=== PATIENT | male | born 1960 | race African-American/Black ===

== ENCOUNTER 2016-12-20 09:53 | Inpatient (IN) | payer MEDICAID ==
[~2016-12-20] VITALS: Ht 193 cm; Wt 149.6 kg
[2016-12-20] MEDS ORDERED: SODIUM CHLORIDE 0.9% 500 ML IV ONE (10:35)
[2016-12-20] MEDS ORDERED: ONDANSETRON HCL 4 MG/2 ML VIAL IV ONE (10:45)
[2016-12-20] MEDS ORDERED: CLINDAMYCIN 900MG IV 50 ML IV ONE (10:45)
[2016-12-20] MEDS ORDERED: MORPHINE SULFATE 4 MG/ML SYRG IV ONE (10:45)
[2016-12-20 11:20] LABS: Basophils # (auto) 0 uL; Basophils % (auto) 0.4 % (0.0-2.0); Eosinophils # (auto) 0.1 uL; Eosinophils % (auto) 1.2 % (0.0-7.0); Hematocrit 34.7 % (41.0-53.0); Hemoglobin 11.6 g/dL (13.5-17.5); Lymphocytes # (auto) 1.7 uL; Lymphocytes % (auto) 18.5 % (10.0-50.0); Mean Corpuscular Hemoglobin 31.9 pg (28.0-32.0); Mean Corpuscular Hgb Conc. 33.5 g/dL (32.0-36.0); Mean Corpuscular Volume 95.1 fL (80.0-100.0); Mean Platelet Volume 8.6 fL (7.4-10.4); Monocytes # (auto) 0.5 uL; Monocytes % (auto) 5.1 % (0.0-12.0); Neutrophils # (auto) 6.9 uL; Neutrophils % (auto) 74.8 % (37.0-80.0); Platelet Count (auto) 318 10^3/uL (140-450); Red Cell Distribution Width 13.7 % (11.6-16.0); White Blood Cell 9.2 10^3/uL (4.4-10.8)
[2016-12-20] MEDS ORDERED: HYDROcodone-ACET 5/325MG TAB PO PRN (11:30)
[2016-12-20] MEDS ORDERED: ACCU-CHEK COMFORT CURVE STRIP VI SCH (11:30)
[2016-12-20] MEDS ORDERED: InsuLIN REG 1unit/0.01ml Soln (100units/ml) SC SCH (11:30)
[2016-12-20] MEDS ORDERED: TEMAZEPAM 15 MG CAP PO PRN (11:30)
[2016-12-20] MEDS ORDERED: LORazepam 0.5 MG TAB PO PRN (11:30)
[2016-12-20] MEDS ORDERED: DEXTROSE (50%) 50ML SYRG IV PRN ×2 (11:30→18:00)
[2016-12-20] MEDS ORDERED: NITROGLYCERIN 0.4 MG SL TAB SL PRN (11:30)
[2016-12-20] MEDS ORDERED: PROMETHAZINE HCL 25 MG/ML 1ML IV PRN (11:30)
[2016-12-20] MEDS ORDERED: MORPHINE SULF INJ 2 MG/ML SYRINGE 1ML IV PRN ×2 (11:30)
[2016-12-20] MEDS ORDERED: ACETAMINOPHEN 500 MG TAB PO PRN (11:30)
[2016-12-20] MEDS ORDERED: amLODIPine BESYLATE 5 MG TAB PO ONE (12:00)
[2016-12-20] MEDS ORDERED: LABETALOL HCL 5 MG/ML 4ML SYRINGE IV PRN ×2 (12:00)
[2016-12-20] MEDS ORDERED: ASPI81CH43 PO (12:05)
[2016-12-20] MEDS ORDERED: OMEG306C OR (12:05)
[2016-12-20] MEDS ORDERED: ATOR10TA PO (12:05)
[2016-12-20] MEDS ORDERED: LISI2.5T47 PO (12:05)
[2016-12-20] MEDS ORDERED: INSLISPI SC (12:05)
[2016-12-20] MEDS ORDERED: INSLANTI SC (12:05)
[2016-12-20] MEDS ORDERED: INFLUENZA QUAD 2016-2017 0.5 ML SYRG IM ONE (12:15)
[2016-12-20] MEDS ORDERED: PNEUMOCOCCAL VACC POLYS 25 MCG/0.5 ML VIAL IM ONE (12:15)
[2016-12-20] MEDS: SODIUM CHLORIDE 0.9% 1,000 ML IV SCH (12:30)
[2016-12-20] MEDS: cefTRIAXone 1GM/50ML D5W 50 ML IV SCH (13:01)
[2016-12-20] MEDS: ENOXAPARIN SOD 40 MG/0.4 ML SYRINGE SC SCH (13:04)
[2016-12-20 13:46] LABS: Albumin 2.6 g/dL (3.4-5.0); BUN/Creatinine Ratio 13.8; Calcium 7.5 mg/dL (8.5-10.1); Potassium 4.1 mmol/L (3.5-5.1)
[2016-12-20 13:48] LABS: Bilirubin, Total 0.5 mg/dL (0.2-1.0); Total Protein 7.2 g/dL (6.4-8.2)
[2016-12-20 13:58] LABS: Lactic Acid 2.5 mmol/L (0.4-2.0)
[2016-12-20 14:13] LABS: REFLEX LACTIC ACID YES OR NO YES
[2016-12-20 16:47] VITALS: BP 136/85
[2016-12-20] MEDS: CLINDAMYCIN 600MG IV 50 ML IV SCH (18:16)
[2016-12-20 19:23] LABS: Urine Bilirubin Negative (Negative); Urine Blood Negative /uL (Negative); Urine Color Yellow (Yellow); Urine Ketone Negative (Negative); Urine Nitrite Negative (Negative); Urine RBC 1 /hpf (0 - 3)
[2016-12-20 19:26] LABS: Urine Glucose 4+ mg/dL (Normal)
[2016-12-20 19:46] LABS: Lactic Acid 2.8 mmol/L (0.4-2.0)
[2016-12-20 19:52] LABS: REFLEX LACTIC ACID YES OR NO NO
[2016-12-20 20:00] VITALS: BP 136/85
[2016-12-20] MEDS: InsuLIN REG 1unit/0.01ml Soln (100units/ml) SC SCH ×2 (20:00→23:48)
[2016-12-20] MEDS: ACCU-CHEK COMFORT CURVE STRIP VI SCH ×2 (20:03→23:44)
[2016-12-20 22:00] VITALS: BP 116/72
[2016-12-21] VITALS (7 sets, daily range): BP systolic 125–154; BP diastolic 71–88
[2016-12-21] MEDS: CLINDAMYCIN 600MG IV 50 ML IV SCH ×3 (02:17→18:01)
[2016-12-21] MEDS: ACCU-CHEK COMFORT CURVE STRIP VI SCH ×5 (03:40→20:00)
[2016-12-21] MEDS: InsuLIN REG 1unit/0.01ml Soln (100units/ml) SC SCH ×5 (03:40→20:00)
[2016-12-21] MEDS: SODIUM CHLORIDE 0.9% 1,000 ML IV SCH ×3 (04:30→17:43)
[2016-12-21 06:32] LABS: Cholesterol 105 mg/dL (<200); HDL Cholesterol 29 mg/dL (40-59); LDL Cholesterol 63 mg/dL (<100); Triglycerides 147 mg/dL (<150)
[2016-12-21] MEDS: cefTRIAXone 1GM/50ML D5W 50 ML IV SCH (09:00)
[2016-12-21] MEDS: amLODIPine BESYLATE 5 MG TAB PO SCH (09:59)
[2016-12-21] MEDS: ENOXAPARIN SOD 40 MG/0.4 ML SYRINGE SC SCH (09:59)
[2016-12-21 12:41] LABS: INR 1.06 (0.9-1.15); Prothrombin Time 10.9 sec (9.37-12.3)
[2016-12-22] VITALS (7 sets, daily range): BP systolic 141–158; BP diastolic 44–81
[2016-12-22] MEDS: CLINDAMYCIN 600MG IV 50 ML IV SCH ×3 (03:17→20:24)
[2016-12-22] MEDS: SODIUM CHLORIDE 0.9% 1,000 ML IV SCH ×3 (03:18→22:45)
[2016-12-22] MEDS: InsuLIN REG 1unit/0.01ml Soln (100units/ml) SC SCH ×6 (04:14→20:25)
[2016-12-22] MEDS: ACCU-CHEK COMFORT CURVE STRIP VI SCH ×6 (04:14→20:26)
[2016-12-22 06:13] LABS: Basophils # (auto) 0 uL; Basophils % (auto) 0.3 % (0.0-2.0); Eosinophils # (auto) 0.2 uL; Eosinophils % (auto) 2.1 % (0.0-7.0); Hematocrit 31.2 % (41.0-53.0); Hemoglobin 10.3 g/dL (13.5-17.5); Lymphocytes # (auto) 1.7 uL; Lymphocytes % (auto) 23.5 % (10.0-50.0); Mean Corpuscular Hgb Conc. 33.1 g/dL (32.0-36.0); Mean Corpuscular Volume 96.5 fL (80.0-100.0); Mean Platelet Volume 7.5 fL (7.4-10.4); Monocytes # (auto) 0.6 uL; Monocytes % (auto) 8.9 % (0.0-12.0); Neutrophils # (auto) 4.7 uL; Neutrophils % (auto) 65.2 % (37.0-80.0); Platelet Count (auto) 310 10^3/uL (140-450); Red Cell Distribution Width 13.4 % (11.6-16.0); White Blood Cell 7.2 10^3/uL (4.4-10.8)
[2016-12-22 06:36] LABS: Calcium 7.7 mg/dL (8.5-10.1); Potassium 3.7 mmol/L (3.5-5.1)
[2016-12-22 06:42] LABS: BUN/Creatinine Ratio 15.3; Bilirubin, Total 0.2 mg/dL (0.2-1.0); Total Protein 6.4 g/dL (6.4-8.2)
[2016-12-22] MEDS: cefTRIAXone 1GM/50ML D5W 50 ML IV SCH (09:00)
[2016-12-22] MEDS: amLODIPine BESYLATE 5 MG TAB PO SCH (09:50)
[2016-12-22] MEDS: ENOXAPARIN SOD 40 MG/0.4 ML SYRINGE SC SCH (09:50)
[2016-12-22] MEDS ORDERED: LIDOCAINE 1% HCL (LOCAL ANESTH.) INJ 20ML MDV ID ONE (12:15)
[2016-12-22 19:23] LABS: Magnesium 1.8 mg/dL (1.6-2.6)
[2016-12-22] MEDS: SODIUM CHLOR 0.9% PF (SALINE LOCK) 10ML VIAL IV SCH (22:45)
[2016-12-23] MEDS: ACCU-CHEK COMFORT CURVE STRIP VI SCH ×6 (00:05→20:00)
[2016-12-23] MEDS: InsuLIN REG 1unit/0.01ml Soln (100units/ml) SC SCH ×6 (00:06→20:00)
[2016-12-23] MEDS: CLINDAMYCIN 600MG IV 50 ML IV SCH ×3 (02:37→20:00)
[2016-12-23 05:00] VITALS: BP 133/55
[2016-12-23 07:24] LABS: Basophils # (auto) 0 uL; Basophils % (auto) 0.1 % (0.0-2.0); Eosinophils # (auto) 0.1 uL; Eosinophils % (auto) 1.6 % (0.0-7.0); Hemoglobin 9.7 g/dL (13.5-17.5); Lymphocytes # (auto) 1.2 uL; Lymphocytes % (auto) 17.1 % (10.0-50.0); Mean Corpuscular Hemoglobin 32.3 pg (28.0-32.0); Mean Corpuscular Hgb Conc. 33.6 g/dL (32.0-36.0); Mean Corpuscular Volume 96.1 fL (80.0-100.0); Mean Platelet Volume 7.8 fL (7.4-10.4); Monocytes # (auto) 0.6 uL; Monocytes % (auto) 8.2 % (0.0-12.0); Neutrophils # (auto) 5.1 uL; Platelet Count (auto) 290 10^3/uL (140-450); Red Cell Distribution Width 13.3 % (11.6-16.0)
[2016-12-23 07:41] LABS: Albumin 1.9 g/dL (3.4-5.0); BUN/Creatinine Ratio 14.2; Bilirubin, Total 0.2 mg/dL (0.2-1.0); Magnesium 1.8 mg/dL (1.6-2.6); Potassium 3.9 mmol/L (3.5-5.1); Total Protein 6.4 g/dL (6.4-8.2)
[2016-12-23] MEDS: cefTRIAXone 1GM/50ML D5W 50 ML IV SCH (08:28)
[2016-12-23 08:55] VITALS: BP 142/74
[2016-12-23] MEDS: ENOXAPARIN SOD 40 MG/0.4 ML SYRINGE SC SCH (09:32)
[2016-12-23] MEDS: amLODIPine BESYLATE 5 MG TAB PO SCH (09:32)
[2016-12-23] MEDS: SODIUM CHLOR 0.9% PF (SALINE LOCK) 10ML VIAL IV SCH ×2 (09:33→21:54)
[2016-12-23] MEDS: SODIUM CHLORIDE 0.9% 1,000 ML IV SCH (09:33)
[2016-12-23] MEDS: METOPROLOL SUCCINATE XL 50 MG TAB PO SCH (09:33)
[2016-12-23] MEDS: MAGNESIUM SULFATE 1GM/100ML 100 ML IV SCH ×2 (09:34→10:54)
[2016-12-23] MEDS ORDERED: METOPROLOL SUCCINATE XL 50 MG TAB PO SCH (10:00)
[2016-12-23 12:43] VITALS: BP 155/77
[2016-12-23] MEDS ORDERED: MULTIPLE VITAMIN TAB PO ONE (14:30)
[2016-12-23] MEDS ORDERED: INFLUENZA QUAD 2016-2017 0.5 ML SYRG IM ONE (16:15)
[2016-12-23] MEDS ORDERED: PNEUMOCOCCAL VACC POLYS 25 MCG/0.5 ML VIAL IM ONE (16:15)
[2016-12-23 18:09] VITALS: BP 157/77
[2016-12-23 20:00] VITALS: BP 138/69
[2016-12-23] MEDS: ASCORBIC ACID 500 MG TAB PO SCH (21:54)
[2016-12-23 22:00] VITALS: BP 138/69
[2016-12-24] MEDS: InsuLIN REG 1unit/0.01ml Soln (100units/ml) SC SCH ×6 (04:00→20:00)
[2016-12-24] MEDS: ACCU-CHEK COMFORT CURVE STRIP VI SCH ×6 (04:25→20:00)
[2016-12-24] MEDS: CLINDAMYCIN 600MG IV 50 ML IV SCH ×3 (04:26→20:31)
[2016-12-24 05:00] VITALS: BP 141/66
[2016-12-24] MEDS: SODIUM CHLORIDE 0.9% 1,000 ML IV SCH ×2 (05:27→15:27)
[2016-12-24 07:21] LABS: Basophils # (auto) 0 uL; Basophils % (auto) 0.3 % (0.0-2.0); Eosinophils # (auto) 0.2 uL; Hematocrit 29.6 % (41.0-53.0); Hemoglobin 9.8 g/dL (13.5-17.5); Lymphocytes % (auto) 22.4 % (10.0-50.0); Mean Corpuscular Hemoglobin 32.1 pg (28.0-32.0); Mean Corpuscular Hgb Conc. 33.3 g/dL (32.0-36.0); Mean Corpuscular Volume 96.6 fL (80.0-100.0); Mean Platelet Volume 7.7 fL (7.4-10.4); Monocytes # (auto) 0.8 uL; Neutrophils # (auto) 5.9 uL; Neutrophils % (auto) 66.3 % (37.0-80.0); Platelet Count (auto) 318 10^3/uL (140-450); Red Cell Distribution Width 13.6 % (11.6-16.0); White Blood Cell 8.9 10^3/uL (4.4-10.8)
[2016-12-24 07:44] LABS: Albumin 1.9 g/dL (3.4-5.0); BUN/Creatinine Ratio 13.7; Bilirubin, Total 0.2 mg/dL (0.2-1.0); Potassium 4.1 mmol/L (3.5-5.1); Total Protein 6.4 g/dL (6.4-8.2)
[2016-12-24 09:00] VITALS: BP 127/70
[2016-12-24] MEDS: MULTIPLE VITAMIN TAB PO SCH (11:15)
[2016-12-24] MEDS: METOPROLOL SUCCINATE XL 50 MG TAB PO SCH (11:16)
[2016-12-24] MEDS: ASCORBIC ACID 500 MG TAB PO SCH ×2 (11:16→21:42)
[2016-12-24] MEDS: ENOXAPARIN SOD 40 MG/0.4 ML SYRINGE SC SCH (11:17)
[2016-12-24] MEDS: amLODIPine BESYLATE 5 MG TAB PO SCH (11:17)
[2016-12-24] MEDS: SODIUM CHLOR 0.9% PF (SALINE LOCK) 10ML VIAL IV SCH ×2 (11:18→21:43)
[2016-12-24] MEDS: cefTRIAXone 1GM/50ML D5W 50 ML IV SCH (11:18)
[2016-12-24] MEDS: AMIODARONE HCL 200 MG TAB PO SCH ×2 (11:43→21:42)
[2016-12-24 12:37] VITALS: BP 127/66
[2016-12-24 16:51] VITALS: BP 125/75
[2016-12-24 20:00] VITALS: BP 144/71
[2016-12-24 22:00] VITALS: BP 144/71
[2016-12-25] MEDS: ACCU-CHEK COMFORT CURVE STRIP VI SCH ×6 (00:17→19:52)
[2016-12-25] MEDS: SODIUM CHLORIDE 0.9% 1,000 ML IV SCH ×3 (03:35→19:53)
[2016-12-25] MEDS: InsuLIN REG 1unit/0.01ml Soln (100units/ml) SC SCH ×6 (04:00→20:01)
[2016-12-25] MEDS: CLINDAMYCIN 600MG IV 50 ML IV SCH ×3 (04:36→19:52)
[2016-12-25 05:00] VITALS: BP 132/70
[2016-12-25 06:21] LABS: Basophils # (auto) 0 uL; Basophils % (auto) 0.4 % (0.0-2.0); Eosinophils # (auto) 0.1 uL; Eosinophils % (auto) 1.9 % (0.0-7.0); Hematocrit 28.5 % (41.0-53.0); Hemoglobin 9.6 g/dL (13.5-17.5); Lymphocytes # (auto) 1.9 uL; Lymphocytes % (auto) 24.1 % (10.0-50.0); Mean Corpuscular Hemoglobin 32.3 pg (28.0-32.0); Mean Corpuscular Hgb Conc. 33.8 g/dL (32.0-36.0); Mean Corpuscular Volume 95.6 fL (80.0-100.0); Mean Platelet Volume 7.5 fL (7.4-10.4); Monocytes # (auto) 0.6 uL; Monocytes % (auto) 8.3 % (0.0-12.0); Neutrophils % (auto) 65.3 % (37.0-80.0); Platelet Count (auto) 351 10^3/uL (140-450); Red Cell Distribution Width 13.5 % (11.6-16.0); White Blood Cell 7.7 10^3/uL (4.4-10.8)
[2016-12-25 06:34] LABS: BUN/Creatinine Ratio 12.9; Calcium 8.1 mg/dL (8.5-10.1); Potassium 4.3 mmol/L (3.5-5.1)
[2016-12-25 08:00] VITALS: BP 131/71
[2016-12-25] MEDS: cefTRIAXone 1GM/50ML D5W 50 ML IV SCH (08:14)
[2016-12-25 09:00] VITALS: BP 131/71
[2016-12-25] MEDS: MULTIPLE VITAMIN TAB PO SCH (10:00)
[2016-12-25] MEDS: AMIODARONE HCL 200 MG TAB PO SCH ×2 (10:00→19:56)
[2016-12-25] MEDS: amLODIPine BESYLATE 5 MG TAB PO SCH (10:00)
[2016-12-25] MEDS: METOPROLOL SUCCINATE XL 50 MG TAB PO SCH (10:00)
[2016-12-25] MEDS: ASCORBIC ACID 500 MG TAB PO SCH ×2 (10:00→19:56)
[2016-12-25] MEDS: ENOXAPARIN SOD 40 MG/0.4 ML SYRINGE SC SCH (10:00)
[2016-12-25] MEDS: SODIUM CHLOR 0.9% PF (SALINE LOCK) 10ML VIAL IV SCH ×2 (10:03→19:53)
[2016-12-25 13:00] VITALS: BP 149/79
[2016-12-25] MEDS ORDERED: ceFAZolin 1GM/50ML D5W 50 ML IV ONE (16:34)
[2016-12-25] MEDS ORDERED: ceFAZolin 1GM VL ONE (16:43)
[2016-12-25] MEDS ORDERED: NEOMYCIN-BACITRACIN-POLYM 15GM TOP OINT TOP ONE (16:44)
[2016-12-25] MEDS ORDERED: BUPIVACAINE 0.75% INJ 10ML MPV SDV IJ ONE (16:44)
[2016-12-25] MEDS ORDERED: fentaNYL CITRATE 100 MCG/2 ML VL ONE (16:49)
[2016-12-25] MEDS ORDERED: MIDAZOLAM HCL 1MG/1ML-2 ML VIAL ONE (16:49)
[2016-12-25 16:59] VITALS: BP 154/72
[2016-12-25] MEDS ORDERED: ONDANSETRON HCL 4 MG/2 ML VIAL IV ONE (18:00)
[2016-12-25] MEDS ORDERED: HYDROmorphone HCL 2 MG/ML VL IV PRN (18:00)
[2016-12-25] MEDS ORDERED: DOCUSATE SOD 100 MG CAP PO PRN ×2 (19:15)
[2016-12-25 22:00] VITALS: BP 142/60
[2016-12-26] MEDS: CLINDAMYCIN 600MG IV 50 ML IV SCH ×2 (01:21→11:22)
[2016-12-26] MEDS: InsuLIN REG 1unit/0.01ml Soln (100units/ml) SC SCH ×5 (04:00→17:33)
[2016-12-26] MEDS: ACCU-CHEK COMFORT CURVE STRIP VI SCH ×5 (04:00→17:31)
[2016-12-26] MEDS: SODIUM CHLORIDE 0.9% 1,000 ML IV SCH ×2 (04:44→17:31)
[2016-12-26 05:00] VITALS: BP 147/72
[2016-12-26 05:48] LABS: Basophils # (auto) 0 uL; Basophils % (auto) 0.3 % (0.0-2.0); Eosinophils # (auto) 0 uL; Hemoglobin 10.1 g/dL (13.5-17.5); Lymphocytes % (auto) 11.9 % (10.0-50.0); Mean Corpuscular Hemoglobin 32.3 pg (28.0-32.0); Mean Corpuscular Hgb Conc. 33.5 g/dL (32.0-36.0); Mean Corpuscular Volume 96.3 fL (80.0-100.0); Mean Platelet Volume 7.8 fL (7.4-10.4); Monocytes # (auto) 0.3 uL; Monocytes % (auto) 4.1 % (0.0-12.0); Neutrophils # (auto) 7.1 uL; Neutrophils % (auto) 83.7 % (37.0-80.0); Platelet Count (auto) 336 10^3/uL (140-450); Red Cell Distribution Width 13.7 % (11.6-16.0); White Blood Cell 8.5 10^3/uL (4.4-10.8)
[2016-12-26 06:09] LABS: Albumin 1.9 g/dL (3.4-5.0); BUN/Creatinine Ratio 14.3; Bilirubin, Total 0.2 mg/dL (0.2-1.0); Calcium 7.7 mg/dL (8.5-10.1); Total Protein 6.9 g/dL (6.4-8.2)
[2016-12-26] MEDS: MULTIPLE VITAMIN TAB PO SCH (08:31)
[2016-12-26] MEDS: ASCORBIC ACID 500 MG TAB PO SCH (08:32)
[2016-12-26] MEDS: ENOXAPARIN SOD 40 MG/0.4 ML SYRINGE SC SCH (08:32)
[2016-12-26] MEDS: SODIUM CHLOR 0.9% PF (SALINE LOCK) 10ML VIAL IV SCH (08:32)
[2016-12-26] MEDS: cefTRIAXone 1GM/50ML D5W 50 ML IV SCH (08:32)
[2016-12-26 09:00] VITALS: BP 127/71
[2016-12-26] MEDS ORDERED: ADENOSINE IV ONE (09:00)
[2016-12-26] MEDS ORDERED: GIVE UN DILUTED IV ONE (09:00)
[2016-12-26] MEDS: AMIODARONE HCL 200 MG TAB PO SCH (11:21)
[2016-12-26] MEDS: amLODIPine BESYLATE 5 MG TAB PO SCH (11:22)
[2016-12-26] MEDS: METOPROLOL SUCCINATE XL 50 MG TAB PO SCH (11:22)
[2016-12-26 13:00] VITALS: BP 154/79
[2016-12-26 17:00] VITALS: BP 137/73
== END 2016-12-26 19:35 | disposition home or self-care (01) | DRG 314 ==
LOC: ER 09:53 → TELE 09:54 → TELE-WESTW 14:39
PROVIDERS: ADMIT Internal Medicine; ATTEND Internal Medicine
PROC: 02HV33Z Insertion of Infusion Device into Superior Vena Cava, Percutaneous Approach (ICD-10-PCS; 2016-12-22)
PROC: 0HRMXK3 Replacement of Right Foot Skin with Nonautologous Tissue Substitute, Full Thickness, External Approach (ICD-10-PCS; 2016-12-25)
PROC: 0Y6P0Z2 Detachment at Right 1st Toe, Mid, Open Approach (ICD-10-PCS; principal; 2016-12-25 16:49)
DX: E11.69 Type 2 diabetes mellitus with other specified complication (principal); E11.21 Type 2 diabetes mellitus with diabetic nephropathy; L03.115 Cellulitis of right lower limb; E11.65 Type 2 diabetes mellitus with hyperglycemia; Z68.41 Body mass index [BMI] 40.0-44.9, adult; L03.031 Cellulitis of right toe; E11.42 Type 2 diabetes mellitus with diabetic polyneuropathy; R59.1 Generalized enlarged lymph nodes; E66.01 Morbid (severe) obesity due to excess calories; L97.514 Non-pressure chronic ulcer of other part of right foot with necrosis of bone; E11.621 Type 2 diabetes mellitus with foot ulcer; I10 Essential (primary) hypertension; M86.8X7 Other osteomyelitis, ankle and foot; E78.5 Hyperlipidemia, unspecified; I16.0 Hypertensive urgency; Z82.49 Family history of ischemic heart disease and other diseases of the circulatory system; Z83.3 Family history of diabetes mellitus; Z80.52 Family history of malignant neoplasm of bladder; Z89.429 Acquired absence of other toe(s), unspecified side; Z98.890 Other specified postprocedural states; Z23 Encounter for immunization
CPT/HCPCS: 36415; 36569; 71010; 73620; 78452; 80048; 80053; 80061; 81001; 82962; 83036; 83605; 83735; 84484; 85025; 85610; 85652; 87040; 87070; 87075; 87077; 87186; 87205; 93005; 93017; 93306; 93926; 96365; 96375; J0153; J0690; J0696; J1815; J2250; J2405; J3490

== ENCOUNTER 2017-04-16 19:05 | Inpatient (IN) | payer MEDICAID ==
[~2017-04-16] VITALS: Ht 193 cm; Wt 142.0 kg
[~2017-04-16 19:05] MED LIST: ASPI81CH43 PO; ATOR10TA PO; INSLANTI SC; INSLISPI SC; LISI2.5T47 PO; OMEG306C OR
[2017-04-16 20:46] LABS: Basophils # (auto) 0 uL; Basophils % (auto) 0.3 % (0.0-2.0); CONDITION Y; Eosinophils # (auto) 0.2 uL; Eosinophils % (auto) 2.6 % (0.0-7.0); Hematocrit 32.5 % (41.0-53.0); Hemoglobin 10.8 g/dL (13.5-17.5); Lymphocytes # (auto) 3.2 uL; Lymphocytes % (auto) 36.2 % (10.0-50.0); Mean Corpuscular Hemoglobin 31.7 pg (28.0-32.0); Mean Corpuscular Hgb Conc. 33.2 g/dL (32.0-36.0); Mean Corpuscular Volume 95.5 fL (80.0-100.0); Mean Platelet Volume 8.6 fL (7.4-10.4); Monocytes # (auto) 0.6 uL; Monocytes % (auto) 6.6 % (0.0-12.0); Neutrophils # (auto) 4.8 uL; Neutrophils % (auto) 54.3 % (37.0-80.0); Platelet Count (auto) 330 10^3/uL (140-450); Red Cell Distribution Width 15.1 % (11.6-16.0); White Blood Cell 8.8 10^3/uL (4.4-10.8)
[2017-04-16 20:53] LABS: Albumin 2.9 g/dL (3.4-5.0); BUN/Creatinine Ratio 11.9; Bilirubin, Total 0.2 mg/dL (0.2-1.0); Calcium 8.1 mg/dL (8.5-10.1); Potassium 4.1 mmol/L (3.5-5.1); Total Protein 7.4 g/dL (6.4-8.2)
[2017-04-16 20:59] LABS: INR 0.91 (0.9-1.15); Partial Thromboplastin Time 28.2 sec (22.64-33.71); Prothrombin Time 9.9 sec (9.37-12.3)
[2017-04-16] MEDS ORDERED: VANCOMYCIN 1GM/250ML D5W 250 ML IV ONE (22:00)
[2017-04-16] MEDS ORDERED: HYDROcodone-ACET 5/325MG TAB PO PRN (23:00)
[2017-04-16] MEDS ORDERED: DEXTROSE (50%) 50ML SYRG IV PRN (23:00)
[2017-04-16] MEDS ORDERED: ACETAMINOPHEN 325 MG TAB PO PRN (23:00)
[2017-04-16] MEDS ORDERED: ONDANSETRON HCL 4 MG/2 ML VIAL IV PRN (23:00)
[2017-04-16] MEDS ORDERED: TEMAZEPAM 15 MG CAP PO PRN (23:00)
[2017-04-16 23:06] LABS: Lactic Acid w/Reflex 3.2 mmol/L (0.4-2.0)
[2017-04-16 23:33] LABS: REFLEX LACTIC ACID YES OR NO YES
[2017-04-17] MEDS: ACCU-CHEK COMFORT CURVE STRIP VI SCH ×3 (05:41→17:49)
[2017-04-17] MEDS: InsuLIN REG 1unit/0.01ml Soln (100units/ml) SC SCH ×3 (05:45→17:49)
[2017-04-17] MEDS: CLINDAMYCIN 600MG IV 50 ML IV SCH ×3 (05:51→22:10)
[2017-04-17 06:37] LABS: Albumin 2.4 g/dL (3.4-5.0); BUN/Creatinine Ratio 14.2; Bilirubin, Total 0.2 mg/dL (0.2-1.0); Calcium 7.8 mg/dL (8.5-10.1); Total Protein 6.6 g/dL (6.4-8.2)
[2017-04-17 06:50] LABS: Urine Bilirubin Negative (Negative); Urine Blood Negative /uL (Negative); Urine Color Yellow (Yellow); Urine Glucose Normal (Normal); Urine Ketone Negative (Negative); Urine Nitrite Negative (Negative); Urine RBC <1 /hpf (0 - 3); Urine Squamous Epithelial Cell FEW /hpf (<5); Urine Urobilinogen Normal (Negative)
[2017-04-17 08:25] LABS: Basophils # (auto) 0 uL; Basophils % (auto) 0.3 % (0.0-2.0); Eosinophils # (auto) 0.2 uL; Eosinophils % (auto) 2.8 % (0.0-7.0); Hematocrit 29.8 % (41.0-53.0); Hemoglobin 9.9 g/dL (13.5-17.5); Lymphocytes # (auto) 2.5 uL; Lymphocytes % (auto) 31.6 % (10.0-50.0); Mean Corpuscular Hemoglobin 31.6 pg (28.0-32.0); Mean Corpuscular Hgb Conc. 33.1 g/dL (32.0-36.0); Mean Corpuscular Volume 95.4 fL (80.0-100.0); Mean Platelet Volume 8.2 fL (7.4-10.4); Monocytes # (auto) 0.5 uL; Neutrophils # (auto) 4.5 uL; Neutrophils % (auto) 58.3 % (37.0-80.0); Platelet Count (auto) 300 10^3/uL (140-450); Red Cell Distribution Width 14.6 % (11.6-16.0); White Blood Cell 7.8 10^3/uL (4.4-10.8)
[2017-04-17] MEDS ORDERED: FAMOTIDINE 20 MG TAB PO SCH (10:00)
[2017-04-17] MEDS: FAMOTIDINE 20 MG TAB PO SCH (10:36)
[2017-04-17] MEDS: ENOXAPARIN SOD 30 MG/0.3 ML SYRINGE SC SCH (10:36)
[2017-04-17] MEDS: LISINOPRIL 5 MG TAB PO SCH (10:38)
[2017-04-17] MEDS: SODIUM CHLORIDE 0.9% 1,000 ML IV SCH ×2 (11:15→22:11)
[2017-04-17] MEDS ORDERED: DEXTROSE (50%) 50ML SYRG IV PRN (12:45)
[2017-04-17 14:08] VITALS: BP 115/46
[2017-04-17 16:00] VITALS: BP 114/67
[2017-04-17] MEDS ORDERED: InsuLIN REG 1unit/0.01ml Soln (100units/ml) SC SCH (17:00)
[2017-04-17 20:00] VITALS: BP 128/61
[2017-04-17] MEDS: cefTRIAXone 1GM/50ML D5W 50 ML IV SCH (21:15)
[2017-04-17 21:17] VITALS: BP 128/61
[2017-04-17] MEDS: ATORVASTATIN 20 MG TAB PO SCH (22:11)
[2017-04-18] VITALS (7 sets, daily range): BP systolic 101–161; BP diastolic 50–64
[2017-04-18] MEDS: ACCU-CHEK COMFORT CURVE STRIP VI SCH ×4 (00:12→17:44)
[2017-04-18] MEDS: InsuLIN REG 1unit/0.01ml Soln (100units/ml) SC SCH ×4 (00:12→17:44)
[2017-04-18 05:46] LABS: Basophils # (auto) 0 uL; Basophils % (auto) 0.4 % (0.0-2.0); CONDITION Y; Eosinophils # (auto) 0.2 uL; Eosinophils % (auto) 3.4 % (0.0-7.0); Hematocrit 30.6 % (41.0-53.0); Hemoglobin 10.2 g/dL (13.5-17.5); Lymphocytes # (auto) 2.5 uL; Lymphocytes % (auto) 43.2 % (10.0-50.0); Mean Corpuscular Hemoglobin 31.9 pg (28.0-32.0); Mean Corpuscular Hgb Conc. 33.4 g/dL (32.0-36.0); Mean Corpuscular Volume 95.4 fL (80.0-100.0); Mean Platelet Volume 8.1 fL (7.4-10.4); Monocytes # (auto) 0.4 uL; Monocytes % (auto) 6.6 % (0.0-12.0); Neutrophils # (auto) 2.7 uL; Neutrophils % (auto) 46.4 % (37.0-80.0); Platelet Count (auto) 309 10^3/uL (140-450); Red Cell Distribution Width 14.8 % (11.6-16.0); White Blood Cell 5.7 10^3/uL (4.4-10.8)
[2017-04-18] MEDS: CLINDAMYCIN 600MG IV 50 ML IV SCH ×3 (05:58→22:26)
[2017-04-18 06:01] LABS: Albumin 2.3 g/dL (3.4-5.0); BUN/Creatinine Ratio 19.2; Calcium 7.8 mg/dL (8.5-10.1); Potassium 3.9 mmol/L (3.5-5.1)
[2017-04-18 06:25] LABS: Bilirubin, Total 0.2 mg/dL (0.2-1.0); Total Protein 6.5 g/dL (6.4-8.2)
[2017-04-18] MEDS: SODIUM CHLORIDE 0.9% 1,000 ML IV SCH ×2 (07:15→17:18)
[2017-04-18] MEDS: cefTRIAXone 1GM/50ML D5W 50 ML IV SCH ×2 (09:21→20:33)
[2017-04-18] MEDS: ENOXAPARIN SOD 30 MG/0.3 ML SYRINGE SC SCH (09:21)
[2017-04-18] MEDS: LISINOPRIL 5 MG TAB PO SCH (09:22)
[2017-04-18] MEDS: FAMOTIDINE 20 MG TAB PO SCH (09:22)
[2017-04-18] MEDS: ATORVASTATIN 20 MG TAB PO SCH (22:26)
[2017-04-19] MEDS: ACCU-CHEK COMFORT CURVE STRIP VI SCH ×5 (00:21→23:47)
[2017-04-19] MEDS: InsuLIN REG 1unit/0.01ml Soln (100units/ml) SC SCH ×5 (00:22→23:47)
[2017-04-19] MEDS: SODIUM CHLORIDE 0.9% 1,000 ML IV SCH ×2 (03:15→19:00)
[2017-04-19 05:00] VITALS: BP 107/62
[2017-04-19] MEDS: CLINDAMYCIN 600MG IV 50 ML IV SCH ×3 (06:01→22:21)
[2017-04-19] MEDS: cefTRIAXone 1GM/50ML D5W 50 ML IV SCH ×2 (09:00→21:31)
[2017-04-19 10:00] VITALS: BP 136/68
[2017-04-19] MEDS: ENOXAPARIN SOD 30 MG/0.3 ML SYRINGE SC SCH (10:02)
[2017-04-19] MEDS: LISINOPRIL 5 MG TAB PO SCH (10:03)
[2017-04-19] MEDS: FAMOTIDINE 20 MG TAB PO SCH (10:03)
[2017-04-19 17:00] VITALS: BP 138/72
[2017-04-19] MEDS ORDERED: LIDOCAINE 1% HCL (LOCAL ANESTH.) INJ 20ML MDV ONE (19:55)
[2017-04-19 20:00] VITALS: BP 140/59
[2017-04-19] MEDS ORDERED: LIDOCAINE 1% HCL (LOCAL ANESTH.) INJ 20ML MDV ID ONE (21:15)
[2017-04-19 22:00] VITALS: BP 140/59
[2017-04-19] MEDS: ATORVASTATIN 20 MG TAB PO SCH (22:21)
[2017-04-19] MEDS: SODIUM CHLOR 0.9% PF (SALINE LOCK) 10ML VIAL IV SCH (22:21)
[2017-04-20] MEDS: ACCU-CHEK COMFORT CURVE STRIP VI SCH ×3 (00:32→12:00)
[2017-04-20 05:00] VITALS: BP 117/77
[2017-04-20] MEDS: CLINDAMYCIN 600MG IV 50 ML IV SCH ×3 (05:30→22:26)
[2017-04-20] MEDS: SODIUM CHLORIDE 0.9% 1,000 ML IV SCH ×3 (05:31→17:31)
[2017-04-20] MEDS: InsuLIN REG 1unit/0.01ml Soln (100units/ml) SC SCH ×3 (05:52→17:31)
[2017-04-20 06:40] LABS: Basophils # (auto) 0 uL; Basophils % (auto) 0.3 % (0.0-2.0); CONDITION Y; Eosinophils # (auto) 0.1 uL; Eosinophils % (auto) 2.3 % (0.0-7.0); Hematocrit 29.3 % (41.0-53.0); Hemoglobin 10.1 g/dL (13.5-17.5); Lymphocytes # (auto) 2.1 uL; Lymphocytes % (auto) 34.8 % (10.0-50.0); Mean Corpuscular Hemoglobin 32.4 pg (28.0-32.0); Mean Corpuscular Hgb Conc. 34.4 g/dL (32.0-36.0); Mean Corpuscular Volume 94.2 fL (80.0-100.0); Mean Platelet Volume 8.2 fL (7.4-10.4); Monocytes # (auto) 0.3 uL; Monocytes % (auto) 5.4 % (0.0-12.0); Neutrophils # (auto) 3.4 uL; Neutrophils % (auto) 57.2 % (37.0-80.0); Platelet Count (auto) 325 10^3/uL (140-450); Red Cell Distribution Width 14.5 % (11.6-16.0)
[2017-04-20 06:56] LABS: Potassium 4.1 mmol/L (3.5-5.1)
[2017-04-20 07:01] LABS: Albumin 2.2 g/dL (3.4-5.0); BUN/Creatinine Ratio 21.9; Bilirubin, Total 0.2 mg/dL (0.2-1.0); Calcium 7.9 mg/dL (8.5-10.1); Total Protein 6.7 g/dL (6.4-8.2)
[2017-04-20 08:55] VITALS: BP 128/73
[2017-04-20] MEDS: cefTRIAXone 1GM/50ML D5W 50 ML IV SCH ×2 (09:17→21:04)
[2017-04-20] MEDS: ENOXAPARIN SOD 30 MG/0.3 ML SYRINGE SC SCH ×2 (10:16→10:20)
[2017-04-20] MEDS: FAMOTIDINE 20 MG TAB PO SCH (10:17)
[2017-04-20] MEDS: LISINOPRIL 5 MG TAB PO SCH (10:17)
[2017-04-20] MEDS: SODIUM CHLOR 0.9% PF (SALINE LOCK) 10ML VIAL IV SCH ×2 (10:17→22:26)
[2017-04-20 12:29] VITALS: BP_SYST 68
[2017-04-20 16:03] VITALS: BP 147/84
[2017-04-20 20:00] VITALS: BP 146/72
[2017-04-20 22:00] VITALS: BP 146/73
[2017-04-20] MEDS: ATORVASTATIN 20 MG TAB PO SCH (22:26)
[2017-04-21] VITALS (7 sets, daily range): BP systolic 133–168; BP diastolic 75–103
[2017-04-21] MEDS: InsuLIN REG 1unit/0.01ml Soln (100units/ml) SC SCH ×5 (00:32→23:47)
[2017-04-21] MEDS: SODIUM CHLORIDE 0.9% 1,000 ML IV SCH ×2 (06:00→11:29)
[2017-04-21] MEDS: CLINDAMYCIN 600MG IV 50 ML IV SCH ×2 (06:07→15:17)
[2017-04-21] MEDS: ACCU-CHEK COMFORT CURVE STRIP VI SCH ×5 (06:07→23:47)
[2017-04-21 06:47] LABS: Basophils # (auto) 0 uL; Basophils % (auto) 0.1 % (0.0-2.0); CONDITION Y; Eosinophils # (auto) 0.1 uL; Eosinophils % (auto) 1.4 % (0.0-7.0); Hematocrit 28.9 % (41.0-53.0); Hemoglobin 9.9 g/dL (13.5-17.5); Lymphocytes # (auto) 3.6 uL; Lymphocytes % (auto) 45.2 % (10.0-50.0); Mean Corpuscular Hemoglobin 32.4 pg (28.0-32.0); Mean Corpuscular Hgb Conc. 34.4 g/dL (32.0-36.0); Mean Corpuscular Volume 94.1 fL (80.0-100.0); Monocytes # (auto) 0.5 uL; Neutrophils # (auto) 3.8 uL; Neutrophils % (auto) 47.3 % (37.0-80.0); Platelet Count (auto) 304 10^3/uL (140-450); Red Cell Distribution Width 14.6 % (11.6-16.0)
[2017-04-21 07:06] LABS: BUN/Creatinine Ratio 20.7; Calcium 7.2 mg/dL (8.5-10.1); Potassium 3.7 mmol/L (3.5-5.1)
[2017-04-21 07:08] LABS: Bilirubin, Total 0.1 mg/dL (0.2-1.0); Total Protein 6.2 g/dL (6.4-8.2)
[2017-04-21] MEDS: SODIUM CHLOR 0.9% PF (SALINE LOCK) 10ML VIAL IV SCH ×2 (08:03→22:06)
[2017-04-21] MEDS: cefTRIAXone 1GM/50ML D5W 50 ML IV SCH (09:11)
[2017-04-21] MEDS: FAMOTIDINE 20 MG TAB PO SCH (10:00)
[2017-04-21] MEDS: ENOXAPARIN SOD 30 MG/0.3 ML SYRINGE SC SCH (10:00)
[2017-04-21] MEDS: LISINOPRIL 5 MG TAB PO SCH (10:51)
[2017-04-21] MEDS ORDERED: ceFAZolin 1GM/50ML D5W 50 ML IV ONE (12:24)
[2017-04-21] MEDS ORDERED: BUPIVACAINE 0.75% INJ 10ML MPV SDV IJ ONE (12:31)
[2017-04-21] MEDS ORDERED: ceFAZolin 1GM VL ONE (12:31)
[2017-04-21] MEDS ORDERED: NEOMYCIN-BACITRACIN-POLYM 15GM TOP OINT TOP ONE (12:32)
[2017-04-21] MEDS ORDERED: fentaNYL CITRATE 100 MCG/2 ML VL ONE (13:23)
[2017-04-21] MEDS ORDERED: MIDAZOLAM HCL 1MG/1ML-2 ML VIAL ONE (13:23)
[2017-04-21] MEDS ORDERED: PROPOFOL 10 MG/ML 20 ML IV ONE (13:46)
[2017-04-21] MEDS ORDERED: KETOROLAC TROMETH 30 MG/ML 1ML VIAL IV ONE (14:00)
[2017-04-21] MEDS ORDERED: LABETALOL HCL 5 MG/ML 4ML SYRINGE IV PRN (14:00)
[2017-04-21] MEDS ORDERED: ONDANSETRON HCL 4 MG/2 ML VIAL IV ONE (14:00)
[2017-04-21] MEDS ORDERED: HYDROmorphone HCL 2 MG/ML VL IV PRN (14:00)
[2017-04-21] MEDS ORDERED: MIDAZOLAM HCL 1MG/1ML-2 ML VIAL IV PRN (14:00)
[2017-04-21] MEDS ORDERED: ePHEDrine SULFATE 50 MG/ML AMP IV PRN (14:00)
[2017-04-21] MEDS: LINEZOLID 600MG/300ML 300 ML IV SCH (18:00)
[2017-04-21] MEDS: ATORVASTATIN 20 MG TAB PO SCH (22:06)
[2017-04-22] VITALS (7 sets, daily range): BP systolic 119–176; BP diastolic 59–87
[2017-04-22] MEDS: SODIUM CHLORIDE 0.9% 1,000 ML IV SCH ×2 (05:38→11:15)
[2017-04-22] MEDS: LINEZOLID 600MG/300ML 300 ML IV SCH ×2 (06:05→17:10)
[2017-04-22] MEDS: InsuLIN REG 1unit/0.01ml Soln (100units/ml) SC SCH ×3 (06:05→17:11)
[2017-04-22] MEDS: ACCU-CHEK COMFORT CURVE STRIP VI SCH ×3 (06:06→17:11)
[2017-04-22 07:25] LABS: Albumin 2.3 g/dL (3.4-5.0); BUN/Creatinine Ratio 18.4; Bilirubin, Total 0.1 mg/dL (0.2-1.0); Calcium 8.3 mg/dL (8.5-10.1); Total Protein 6.4 g/dL (6.4-8.2)
[2017-04-22] MEDS: ENOXAPARIN SOD 30 MG/0.3 ML SYRINGE SC SCH (10:31)
[2017-04-22] MEDS: LISINOPRIL 5 MG TAB PO SCH (10:31)
[2017-04-22] MEDS: FAMOTIDINE 20 MG TAB PO SCH (10:31)
[2017-04-22] MEDS: SODIUM CHLOR 0.9% PF (SALINE LOCK) 10ML VIAL IV SCH ×2 (10:32→21:54)
[2017-04-22 12:10] LABS: Basophils # (auto) 0.1 uL; Basophils % (auto) 0.6 % (0.0-2.0); CONDITION Y; Eosinophils # (auto) 0 uL; Hematocrit 28.7 % (41.0-53.0); Hemoglobin 9.8 g/dL (13.5-17.5); Lymphocytes % (auto) 22.6 % (10.0-50.0); Mean Corpuscular Hemoglobin 32.2 pg (28.0-32.0); Mean Corpuscular Hgb Conc. 34.1 g/dL (32.0-36.0); Mean Corpuscular Volume 94.4 fL (80.0-100.0); Mean Platelet Volume 7.9 fL (7.4-10.4); Monocytes # (auto) 0.5 uL; Monocytes % (auto) 6.1 % (0.0-12.0); Neutrophils # (auto) 6.3 uL; Neutrophils % (auto) 70.7 % (37.0-80.0); Platelet Count (auto) 283 10^3/uL (140-450); Red Cell Distribution Width 14.8 % (11.6-16.0); White Blood Cell 8.9 10^3/uL (4.4-10.8)
[2017-04-22] MEDS: ATORVASTATIN 20 MG TAB PO SCH (21:47)
[2017-04-22] MEDS: INSULIN DETEMIR(LEVEMIR) 1unit/0.01ml Soln (100units/ml) SC SCH (22:03)
[2017-04-23] MEDS: SODIUM CHLORIDE 0.9% 1,000 ML IV SCH ×3 (00:18→17:22)
[2017-04-23] MEDS: InsuLIN REG 1unit/0.01ml Soln (100units/ml) SC SCH ×4 (00:18→17:23)
[2017-04-23] MEDS: ACCU-CHEK COMFORT CURVE STRIP VI SCH ×4 (00:18→17:23)
[2017-04-23 05:00] VITALS: BP 122/66
[2017-04-23 06:01] LABS: Basophils # (auto) 0 uL; Basophils % (auto) 0.3 % (0.0-2.0); CONDITION Y; Eosinophils # (auto) 0.1 uL; Eosinophils % (auto) 1.6 % (0.0-7.0); Hematocrit 30.6 % (41.0-53.0); Hemoglobin 10.3 g/dL (13.5-17.5); Lymphocytes # (auto) 2.5 uL; Lymphocytes % (auto) 35.1 % (10.0-50.0); Mean Corpuscular Hgb Conc. 33.8 g/dL (32.0-36.0); Mean Corpuscular Volume 94.9 fL (80.0-100.0); Mean Platelet Volume 7.8 fL (7.4-10.4); Monocytes # (auto) 0.4 uL; Monocytes % (auto) 5.5 % (0.0-12.0); Neutrophils # (auto) 4.2 uL; Neutrophils % (auto) 57.5 % (37.0-80.0); Platelet Count (auto) 335 10^3/uL (140-450); Red Cell Distribution Width 14.7 % (11.6-16.0); White Blood Cell 7.2 10^3/uL (4.4-10.8)
[2017-04-23] MEDS: LINEZOLID 600MG/300ML 300 ML IV SCH ×2 (06:09→17:22)
[2017-04-23 06:21] LABS: Potassium 4.4 mmol/L (3.5-5.1)
[2017-04-23 06:27] LABS: Albumin 2.2 g/dL (3.4-5.0); Calcium 8.2 mg/dL (8.5-10.1)
[2017-04-23 06:33] LABS: Bilirubin, Total 0.2 mg/dL (0.2-1.0); Total Protein 6.5 g/dL (6.4-8.2)
[2017-04-23 08:00] VITALS: BP 115/52
[2017-04-23 09:07] VITALS: BP 115/52
[2017-04-23] MEDS: LISINOPRIL 5 MG TAB PO SCH (09:59)
[2017-04-23] MEDS: FAMOTIDINE 20 MG TAB PO SCH (09:59)
[2017-04-23] MEDS: ENOXAPARIN SOD 30 MG/0.3 ML SYRINGE SC SCH (12:19)
[2017-04-23] MEDS: SODIUM CHLOR 0.9% PF (SALINE LOCK) 10ML VIAL IV SCH ×2 (12:19→21:58)
[2017-04-23 13:09] VITALS: BP 157/79
[2017-04-23 16:34] VITALS: BP 144/72
[2017-04-23] MEDS: ATORVASTATIN 20 MG TAB PO SCH (21:58)
[2017-04-23 22:00] VITALS: BP 156/73
[2017-04-23] MEDS: INSULIN DETEMIR(LEVEMIR) 1unit/0.01ml Soln (100units/ml) SC SCH (22:25)
[2017-04-24] VITALS (7 sets, daily range): BP systolic 121–171; BP diastolic 61–85
[2017-04-24] MEDS: ACCU-CHEK COMFORT CURVE STRIP VI SCH ×4 (00:02→17:31)
[2017-04-24] MEDS: InsuLIN REG 1unit/0.01ml Soln (100units/ml) SC SCH ×4 (00:02→17:31)
[2017-04-24] MEDS: LINEZOLID 600MG/300ML 300 ML IV SCH ×2 (06:01→17:00)
[2017-04-24 06:38] LABS: Basophils # (auto) 0 uL; Basophils % (auto) 0.4 % (0.0-2.0); CONDITION Y; Eosinophils # (auto) 0.2 uL; Hematocrit 30.9 % (41.0-53.0); Hemoglobin 10.2 g/dL (13.5-17.5); Lymphocytes # (auto) 4.7 uL; Lymphocytes % (auto) 43.1 % (10.0-50.0); Mean Corpuscular Hemoglobin 31.7 pg (28.0-32.0); Mean Corpuscular Hgb Conc. 33.1 g/dL (32.0-36.0); Mean Corpuscular Volume 95.8 fL (80.0-100.0); Mean Platelet Volume 8.1 fL (7.4-10.4); Monocytes # (auto) 0.6 uL; Monocytes % (auto) 5.6 % (0.0-12.0); Neutrophils # (auto) 5.3 uL; Neutrophils % (auto) 48.9 % (37.0-80.0); Platelet Count (auto) 292 10^3/uL (140-450); Red Cell Distribution Width 15.1 % (11.6-16.0); SUSPECT SEE PRINTOUT; White Blood Cell 10.9 10^3/uL (4.4-10.8)
[2017-04-24] MEDS: SODIUM CHLORIDE 0.9% 1,000 ML IV SCH ×2 (06:54→13:15)
[2017-04-24 06:56] LABS: Albumin 2.3 g/dL (3.4-5.0); BUN/Creatinine Ratio 17.6; Calcium 8.2 mg/dL (8.5-10.1); Potassium 4.5 mmol/L (3.5-5.1)
[2017-04-24 07:08] LABS: Bilirubin, Total 0.2 mg/dL (0.2-1.0); Total Protein 6.1 g/dL (6.4-8.2)
[2017-04-24] MEDS: SODIUM CHLOR 0.9% PF (SALINE LOCK) 10ML VIAL IV SCH (10:28)
[2017-04-24] MEDS: FAMOTIDINE 20 MG TAB PO SCH (10:31)
[2017-04-24] MEDS: LISINOPRIL 5 MG TAB PO SCH (10:31)
[2017-04-24] MEDS: ENOXAPARIN SOD 30 MG/0.3 ML SYRINGE SC SCH (10:31)
== END 2017-04-24 20:55 | disposition home or self-care (01) | DRG 314 ==
LOC: ER 19:11 → OVERFLOW 19:12 → EAST 04-17 09:34
PROVIDERS: ADMIT Nurse Practitioner; ATTEND Internal Medicine
PROC: 02HV33Z Insertion of Infusion Device into Superior Vena Cava, Percutaneous Approach (ICD-10-PCS; principal; 2017-04-19)
PROC: 0Y6R0Z1 Detachment at Right 2nd Toe, High, Open Approach (ICD-10-PCS; 2017-04-21)
DX: E11.621 Type 2 diabetes mellitus with foot ulcer (principal); E11.22 Type 2 diabetes mellitus with diabetic chronic kidney disease; N18.4 Chronic kidney disease, stage 4 (severe); N17.9 Acute kidney failure, unspecified; M86.8X7 Other osteomyelitis, ankle and foot; E11.40 Type 2 diabetes mellitus with diabetic neuropathy, unspecified; E11.69 Type 2 diabetes mellitus with other specified complication; L97.519 Non-pressure chronic ulcer of other part of right foot with unspecified severity; E78.5 Hyperlipidemia, unspecified; L03.031 Cellulitis of right toe; D63.8 Anemia in other chronic diseases classified elsewhere; E11.65 Type 2 diabetes mellitus with hyperglycemia; E44.1 Mild protein-calorie malnutrition; I12.9 Hypertensive chronic kidney disease with stage 1 through stage 4 chronic kidney disease, or unspecified chronic kidney disease; E11.51 Type 2 diabetes mellitus with diabetic peripheral angiopathy without gangrene; N28.89 Other specified disorders of kidney and ureter; Z82.49 Family history of ischemic heart disease and other diseases of the circulatory system; Z83.3 Family history of diabetes mellitus; Z68.38 Body mass index [BMI] 38.0-38.9, adult; Z89.411 Acquired absence of right great toe; Z71.89 Other specified counseling
CPT/HCPCS: 36415; 36569; 71010; 73630; 74176; 76775; 80053; 81001; 82570; 82962; 83036; 83605; 83970; 84100; 84156; 84300; 85025; 85610; 85652; 85730; 86803; 87040; 87070; 87075; 87076; 87077; 87081; 87186; 87205; 87340; 93005; 93926; 96365; 96372; J0690; J0696; J1815; J2001; J2250; J2704; J3490

== ENCOUNTER 2017-05-02 11:38 | Emergency (ER) | payer MEDICAID ==
[~2017-05-02] VITALS: Ht 193 cm; Wt 136.1 kg
[2017-05-02] MEDS: VANCOMYCIN 1GM/250ML D5W 250 ML IV ONE (14:45)
[2017-05-02 15:44] VITALS: BP 155/94
== END 2017-05-02 17:07 | disposition home or self-care (01) ==
LOC: ER 11:44
DX: M86.171 Other acute osteomyelitis, right ankle and foot (principal); E11.9 Type 2 diabetes mellitus without complications; E78.5 Hyperlipidemia, unspecified; I10 Essential (primary) hypertension
CPT/HCPCS: 94761; 96365; 96366; 99285; J3370

== ENCOUNTER 2017-05-03 09:56 | Emergency (ER) | payer MEDICAID ==
[~2017-05-03] VITALS: Ht 193 cm; Wt 136.1 kg
[2017-05-03] MEDS ORDERED: PIPERACILLIN-TAZOB 3.375GM 100 ML IV ONE (10:30)
[2017-05-03 12:20] VITALS: BP 123/63
== END 2017-05-03 17:44 | disposition home or self-care (01) ==
LOC: ER 10:04
DX: L08.9 Local infection of the skin and subcutaneous tissue, unspecified (principal); E78.5 Hyperlipidemia, unspecified; E11.9 Type 2 diabetes mellitus without complications; I10 Essential (primary) hypertension; Z79.4 Long term (current) use of insulin; Z79.82 Long term (current) use of aspirin
CPT/HCPCS: 36569; 71010; 96365; 96366; 99285; C1751; J2543; J7050

== ENCOUNTER 2017-08-11 12:21 | Inpatient (IN) | payer MEDICAID ==
[~2017-08-11] VITALS: Ht 193 cm; Wt 144.2 kg
[~2017-08-11 12:21] MED LIST changes: -ATOR10TA PO; +GABA-339 PO; +METF-370 PO
[2017-08-11 13:19] LABS: Basophils # (auto) 0 uL; Basophils % (auto) 0.4 % (0.0-2.0); Eosinophils # (auto) 0.2 uL; Eosinophils % (auto) 2.5 % (0.0-7.0); Hematocrit 32.2 % (41.0-53.0); Hemoglobin 10.6 g/dL (13.5-17.5); Lymphocytes # (auto) 2.7 uL; Mean Corpuscular Hemoglobin 32.8 pg (28.0-32.0); Mean Corpuscular Hgb Conc. 32.9 g/dL (32.0-36.0); Mean Corpuscular Volume 99.9 fL (80.0-100.0); Monocytes # (auto) 0.5 uL; Monocytes % (auto) 6.4 % (0.0-12.0); Neutrophils # (auto) 4.2 uL; Neutrophils % (auto) 54.7 % (37.0-80.0); Nucleated Red Blood Cells % 0.1 %; Platelet Count (auto) 86 10^3/uL (140-450); Red Blood Cells 3.23 10^6/uL (4.5-5.90); Red Cell Distribution Width 15.8 % (11.8-14.3); White Blood Cell 7.6 10^3/uL (4.4-10.8)
[2017-08-11 13:41] LABS: Albumin 3.1 g/dL (3.4-5.0); BUN/Creatinine Ratio 18.6; Bilirubin, Total 0.2 mg/dL (0.2-1.0); Total Protein 7.6 g/dL (6.4-8.2)
[2017-08-11 13:50] LABS: Potassium 6.8 mmol/L (3.5-5.1)
[2017-08-11] MEDS ORDERED: CLINDAMYCIN 600MG IV 50 ML IV ONE (14:15)
[2017-08-11] MEDS ORDERED: PIPERACILLIN-TAZOB 2.25GM 50 ML IV ONE (15:00)
[2017-08-11] MEDS ORDERED: MORPHINE SULFATE 10 MG/ML INJ 1ML SDV IV PRN ×2 (15:00)
[2017-08-11] MEDS ORDERED: NITROGLYCERIN 0.4 MG SL TAB SL PRN (15:00)
[2017-08-11] MEDS ORDERED: DEXTROSE (50%) 50ML SYRG IV ONE ×2 (15:00→22:15)
[2017-08-11] MEDS ORDERED: InsuLIN REG 1unit/0.01ml Soln (100units/ml) IV ONE ×2 (15:00→22:15)
[2017-08-11] MEDS ORDERED: ALBUTEROL SULF 2.5 MG/0.5ML(0.5%) NEB SOLN NEB ONE (15:00)
[2017-08-11] MEDS ORDERED: ONDANSETRON HCL 4 MG/2 ML VIAL IV PRN (15:00)
[2017-08-11] MEDS ORDERED: CALCIUM GLUC 4.65meq/50ml D5AE 50 ML IV ONE ×3 (15:00→22:19)
[2017-08-11] MEDS ORDERED: SODIUM BICARBONATE 50ML VIAL 50 ML in SOD CHL 0.45% 1,000 ML IV SCH (15:45)
[2017-08-11] MEDS ORDERED: FUROSEMIDE 40 MG/4 ML VIAL IV ONE (16:45)
[2017-08-11 16:56] LABS: Magnesium 2.3 mg/dL (1.6-2.6)
[2017-08-11 20:10] LABS: Urine WBC None Seen /hpf (0 - 3)
[2017-08-11 20:26] LABS: Urine Bacteria NONE SEEN /hpf (None Seen); Urine Blood Negative /uL (Negative); Urine Specific Gravity 1.007 (1.001-1.035)
[2017-08-11 20:37] LABS: Protein, Urine 27.9 mg/dL (0.0-11.9)
[2017-08-11] MEDS: PIPERACILLIN-TAZOB 2.25GM 50 ML IV SCH (20:57)
[2017-08-11] MEDS: GABAPENTIN 300 MG CAP PO SCH (21:35)
[2017-08-11] MEDS: SODIUM BICARBONATE 650 MG TAB PO SCH (21:35)
[2017-08-11 21:46] LABS: Calcium 8.2 mg/dL (8.5-10.1)
[2017-08-11 21:48] LABS: Potassium 5.6 mmol/L (3.5-5.1)
[2017-08-11] MEDS ORDERED: GABAPENTIN 300 MG CAP PO SCH (22:00)
[2017-08-11] MEDS ORDERED: SODIUM POLYSTYRENE SULF 15GM/60ML SUSP PO ONE (22:15)
[2017-08-11] MEDS ORDERED: SODIUM POLYSTYRENE SULF 15GM/60ML SUSP ONE (22:17)
[2017-08-11] MEDS ORDERED: DEXTROSE 50% SYRINGE 50 ML IV ONE (22:28)
[2017-08-11] MEDS ORDERED: InsuLIN REG 1unit/0.01ml Soln (100units/ml) ONE (22:28)
[2017-08-12] MEDS: PIPERACILLIN-TAZOB 2.25GM 50 ML IV SCH ×4 (03:25→23:44)
[2017-08-12] MEDS ORDERED: DEXTROSE (50%) 50ML SYRG IV PRN (03:45)
[2017-08-12] MEDS: GABAPENTIN 300 MG CAP PO SCH ×3 (06:02→23:44)
[2017-08-12] MEDS: ACCU-CHEK COMFORT CURVE STRIP VI SCH ×4 (06:25→22:00)
[2017-08-12] MEDS: InsuLIN REG 1unit/0.01ml Soln (100units/ml) SC SCH ×4 (06:25→22:00)
[2017-08-12 09:33] LABS: Basophils # (auto) 0 uL; Basophils % (auto) 0.3 % (0.0-2.0); Eosinophils # (auto) 0.2 uL; Eosinophils % (auto) 3.2 % (0.0-7.0); Hematocrit 32.5 % (41.0-53.0); Hemoglobin 10.6 g/dL (13.5-17.5); Lymphocytes # (auto) 1.9 uL; Lymphocytes % (auto) 35.1 % (10.0-50.0); Mean Corpuscular Hemoglobin 33.2 pg (28.0-32.0); Mean Corpuscular Hgb Conc. 32.7 g/dL (32.0-36.0); Mean Corpuscular Volume 101.4 fL (80.0-100.0); Monocytes # (auto) 0.4 uL; Neutrophils # (auto) 2.9 uL; Neutrophils % (auto) 54.4 % (37.0-80.0); Nucleated Red Blood Cells % 0.1 %; Platelet Count (auto) 269 10^3/uL (140-450); Red Blood Cells 3.21 10^6/uL (4.5-5.90); Red Cell Distribution Width 15.7 % (11.8-14.3); White Blood Cell 5.3 10^3/uL (4.4-10.8)
[2017-08-12] MEDS: SODIUM BICARBONATE 650 MG TAB PO SCH ×2 (09:42→23:44)
[2017-08-12] MEDS: FUROSEMIDE 40 MG/4 ML VIAL IV SCH (09:42)
[2017-08-12 09:54] LABS: Calcium 8.1 mg/dL (8.5-10.1); Potassium 5.4 mmol/L (3.5-5.1)
[2017-08-13] MEDS: PIPERACILLIN-TAZOB 2.25GM 50 ML IV SCH ×2 (06:00→09:45)
[2017-08-13] MEDS: GABAPENTIN 300 MG CAP PO SCH ×3 (06:00→22:33)
[2017-08-13 06:33] LABS: Basophils # (auto) 0 uL; Eosinophils # (auto) 0.2 uL; Monocytes # (auto) 0.4 uL; White Blood Cell 5.9 10^3/uL (4.4-10.8)
[2017-08-13 06:37] LABS: Basophils % (auto) 0.5 % (0.0-2.0); Eosinophils % (auto) 3.5 % (0.0-7.0); Hematocrit 32.7 % (41.0-53.0); Hemoglobin 10.7 g/dL (13.5-17.5); Lymphocytes # (auto) 2.2 uL; Lymphocytes % (auto) 36.6 % (10.0-50.0); Mean Corpuscular Hemoglobin 33.1 pg (28.0-32.0); Mean Corpuscular Hgb Conc. 32.7 g/dL (32.0-36.0); Mean Corpuscular Volume 101.3 fL (80.0-100.0); Monocytes % (auto) 6.8 % (0.0-12.0); Neutrophils # (auto) 3.1 uL; Neutrophils % (auto) 52.6 % (37.0-80.0); Platelet Count (auto) 278 10^3/uL (140-450); Red Blood Cells 3.23 10^6/uL (4.5-5.90); Red Cell Distribution Width 15.4 % (11.8-14.3)
[2017-08-13 06:39] LABS: Potassium 5.5 mmol/L (3.5-5.1)
[2017-08-13 06:49] LABS: Albumin 2.7 g/dL (3.4-5.0); BUN/Creatinine Ratio 18.5; Bilirubin, Total 0.3 mg/dL (0.2-1.0); Calcium 8.2 mg/dL (8.5-10.1); Total Protein 6.7 g/dL (6.4-8.2)
[2017-08-13] MEDS: ACCU-CHEK COMFORT CURVE STRIP VI SCH ×4 (07:15→21:23)
[2017-08-13] MEDS: InsuLIN REG 1unit/0.01ml Soln (100units/ml) SC SCH ×4 (07:45→21:26)
[2017-08-13] MEDS: FUROSEMIDE 40 MG/4 ML VIAL IV SCH (09:46)
[2017-08-13] MEDS: SODIUM POLYSTYRENE SULF 15GM/60ML SUSP PO SCH ×2 (10:29→22:33)
[2017-08-13] MEDS: SODIUM CHLORIDE 0.9% 1,000 ML IV SCH (10:29)
[2017-08-13] MEDS ORDERED: MEROPENEM 1GM IVPB 100 ML IV SCH (11:00)
[2017-08-13] MEDS: MEROPENEM 1GM IVPB 100 ML IV SCH ×2 (11:27→22:34)
[2017-08-13] MEDS ORDERED: SODIUM BICARBONATE 8.4 % INJ 50ML VIAL IV ONE (12:05)
[2017-08-13] MEDS ORDERED: ONDANSETRON HCL 4 MG/2 ML VIAL ONE (12:07)
[2017-08-13] MEDS ORDERED: PROPOFOL 10 MG/ML 20 ML IV ONE (12:07)
[2017-08-13] MEDS ORDERED: fentaNYL CITRATE 100 MCG/2 ML VL ONE (12:07)
[2017-08-13] MEDS ORDERED: LIDOCAINE HCL 2 %PF INJ 10ML AMP IJ ONE (12:07)
[2017-08-13] MEDS ORDERED: METOCLOPRAMIDE HCL 5MG/ml INJ 2ml VIAL ONE (12:07)
[2017-08-13] MEDS ORDERED: ceFAZolin 1GM VL ONE (12:10)
[2017-08-13] MEDS ORDERED: BUPIVACAINE 0.75% INJ 10ML MPV SDV IJ ONE (12:11)
[2017-08-13 13:04] LABS: INR 0.95 (0.9-1.15); Prothrombin Time 10.3 sec (9.37-12.3)
[2017-08-13 13:05] LABS: Partial Thromboplastin Time 26.8 sec (22.64-33.71)
[2017-08-13] MEDS ORDERED: PHENYLEPHRINE HCL 10 MG/ML VL ONE (13:33)
[2017-08-13] MEDS ORDERED: NALOXONE HCL 0.4 MG/ML VIAL IV PRN (14:15)
[2017-08-13] MEDS ORDERED: hydrALAZINE HCL 20 MG/ML VL IV PRN (14:15)
[2017-08-13] MEDS ORDERED: ONDANSETRON HCL 4 MG/2 ML VIAL IV ONE (14:15)
[2017-08-13] MEDS ORDERED: LABETALOL HCL 5 MG/ML 4ML SYRINGE IV PRN (14:15)
[2017-08-13] MEDS ORDERED: fentaNYL CITRATE 100 MCG/2 ML VL IV ONE (15:00)
[2017-08-13] MEDS: SODIUM BICARBONATE 650 MG TAB PO SCH ×2 (17:04→18:47)
[2017-08-13] MEDS ORDERED: CATHFLO ACTIVASE (ALTEPLASE) 2 MG VIAL IV ONE (17:45)
[2017-08-13 18:19] LABS: Basophils # (auto) 0 uL; Basophils % (auto) 0.4 % (0.0-2.0); Eosinophils # (auto) 0.2 uL; Eosinophils % (auto) 2.6 % (0.0-7.0); Hematocrit 31.5 % (41.0-53.0); Hemoglobin 10.4 g/dL (13.5-17.5); Lymphocytes # (auto) 2.4 uL; Lymphocytes % (auto) 33.1 % (10.0-50.0); Mean Corpuscular Hemoglobin 33.2 pg (28.0-32.0); Mean Corpuscular Hgb Conc. 33.1 g/dL (32.0-36.0); Mean Corpuscular Volume 100.4 fL (80.0-100.0); Monocytes # (auto) 0.4 uL; Monocytes % (auto) 5.4 % (0.0-12.0); Neutrophils # (auto) 4.2 uL; Neutrophils % (auto) 58.5 % (37.0-80.0); Nucleated Red Blood Cells % 0.2 %; Platelet Count (auto) 282 10^3/uL (140-450); Red Blood Cells 3.14 10^6/uL (4.5-5.90); Red Cell Distribution Width 15.5 % (11.8-14.3); White Blood Cell 7.1 10^3/uL (4.4-10.8)
[2017-08-13 18:22] LABS: BUN/Creatinine Ratio 17.7; Calcium 7.9 mg/dL (8.5-10.1)
[2017-08-13 18:23] LABS: Potassium 5.8 mmol/L (3.5-5.1)
[2017-08-13] MEDS ORDERED: ALBUTEROL SULF 2.5 MG/0.5ML(0.5%) NEB SOLN NEB ONE (19:30)
[2017-08-13] MEDS ORDERED: DEXTROSE (50%) 50ML SYRG IV ONE (19:30)
[2017-08-13] MEDS ORDERED: InsuLIN REG 1unit/0.01ml Soln (100units/ml) IV ONE (19:30)
[2017-08-13 22:47] VITALS: BP 140/73
[2017-08-14] VITALS: BP 140/73
[2017-08-14 04:00] VITALS: BP 136/69
[2017-08-14] MEDS: SODIUM CHLORIDE 0.9% 1,000 ML IV SCH ×2 (05:16→06:15)
[2017-08-14] MEDS: HYDROcodone-ACET 5/325MG TAB PO PRN (05:26)
[2017-08-14] MEDS: GABAPENTIN 300 MG CAP PO SCH ×3 (05:27→22:05)
[2017-08-14] MEDS: SODIUM BICARBONATE 650 MG TAB PO SCH ×3 (05:27→22:06)
[2017-08-14 06:05] LABS: Basophils # (auto) 0 uL; Basophils % (auto) 0.3 % (0.0-2.0); Eosinophils # (auto) 0.1 uL; Eosinophils % (auto) 1.8 % (0.0-7.0); Hematocrit 27.9 % (41.0-53.0); Hemoglobin 9.2 g/dL (13.5-17.5); Lymphocytes # (auto) 1.7 uL; Mean Corpuscular Hemoglobin 33.1 pg (28.0-32.0); Mean Corpuscular Hgb Conc. 32.9 g/dL (32.0-36.0); Mean Corpuscular Volume 100.6 fL (80.0-100.0); Monocytes # (auto) 0.5 uL; Monocytes % (auto) 7.3 % (0.0-12.0); Neutrophils # (auto) 4.9 uL; Neutrophils % (auto) 67.6 % (37.0-80.0); Nucleated Red Blood Cells % 0.1 %; Platelet Count (auto) 254 10^3/uL (140-450); Red Blood Cells 2.77 10^6/uL (4.5-5.90); Red Cell Distribution Width 15.6 % (11.8-14.3); White Blood Cell 7.2 10^3/uL (4.4-10.8)
[2017-08-14 06:15] LABS: Albumin 2.5 g/dL (3.4-5.0); BUN/Creatinine Ratio 17.4; Calcium 7.5 mg/dL (8.5-10.1); Potassium 5.3 mmol/L (3.5-5.1)
[2017-08-14 06:18] LABS: Bilirubin, Total 0.4 mg/dL (0.2-1.0); Total Protein 6.3 g/dL (6.4-8.2)
[2017-08-14] MEDS: InsuLIN REG 1unit/0.01ml Soln (100units/ml) SC SCH ×4 (07:00→22:07)
[2017-08-14] MEDS: ACCU-CHEK COMFORT CURVE STRIP VI SCH ×4 (07:00→22:07)
[2017-08-14] MEDS ORDERED: ERTAPENEM SOD INJ 1 GM in SODIUM CHL 0.9% 50 ML IV SCH (10:00)
[2017-08-14] MEDS: FUROSEMIDE 40 MG/4 ML VIAL IV SCH (10:06)
[2017-08-14] MEDS: MEROPENEM 1GM IVPB 100 ML IV SCH ×2 (10:55→22:36)
[2017-08-14 12:00] VITALS: BP 121/70
[2017-08-14 16:00] VITALS: BP 135/79
[2017-08-14] MEDS: TAMSULOSIN HYDROCHLORIDE 0.4 MG CAP PO SCH (18:12)
[2017-08-14 19:56] VITALS: BP 138/55
[2017-08-15] VITALS: BP 156/82
[2017-08-15 05:00] VITALS: BP 127/60
[2017-08-15 05:10] LABS: Basophils # (auto) 0 uL; Basophils % (auto) 0.4 % (0.0-2.0); Eosinophils # (auto) 0.2 uL; Eosinophils % (auto) 2.8 % (0.0-7.0); Hematocrit 27.9 % (41.0-53.0); Hemoglobin 9.3 g/dL (13.5-17.5); Lymphocytes # (auto) 1.6 uL; Mean Corpuscular Hemoglobin 33.6 pg (28.0-32.0); Mean Corpuscular Hgb Conc. 33.3 g/dL (32.0-36.0); Monocytes # (auto) 0.5 uL; Monocytes % (auto) 7.2 % (0.0-12.0); Neutrophils # (auto) 4.1 uL; Neutrophils % (auto) 64.6 % (37.0-80.0); Platelet Count (auto) 250 10^3/uL (140-450); Red Blood Cells 2.77 10^6/uL (4.5-5.90); Red Cell Distribution Width 15.5 % (11.8-14.3); White Blood Cell 6.3 10^3/uL (4.4-10.8)
[2017-08-15 05:27] LABS: Albumin 2.5 g/dL (3.4-5.0); BUN/Creatinine Ratio 16.4; Bilirubin, Total 0.5 mg/dL (0.2-1.0); Calcium 7.8 mg/dL (8.5-10.1); Potassium 4.5 mmol/L (3.5-5.1); Total Protein 6.7 g/dL (6.4-8.2)
[2017-08-15] MEDS: SODIUM BICARBONATE 650 MG TAB PO SCH ×3 (06:09→21:32)
[2017-08-15] MEDS: GABAPENTIN 300 MG CAP PO SCH ×3 (06:10→21:32)
[2017-08-15] MEDS: ACCU-CHEK COMFORT CURVE STRIP VI SCH ×4 (06:10→21:54)
[2017-08-15] MEDS: InsuLIN REG 1unit/0.01ml Soln (100units/ml) SC SCH ×4 (06:11→21:55)
[2017-08-15] MEDS: HYDROcodone-ACET 5/325MG TAB PO PRN ×2 (06:22→15:40)
[2017-08-15] MEDS: FUROSEMIDE 40 MG/4 ML VIAL IV SCH (10:30)
[2017-08-15] MEDS: MEROPENEM 1GM IVPB 100 ML IV SCH ×2 (11:26→22:30)
[2017-08-15 12:00] VITALS: BP 145/77
[2017-08-15 16:00] VITALS: BP 150/77
[2017-08-15] MEDS: TAMSULOSIN HYDROCHLORIDE 0.4 MG CAP PO SCH (18:06)
[2017-08-15 21:47] VITALS: BP 141/64
[2017-08-16 05:00] VITALS: BP 131/70
[2017-08-16] MEDS: SODIUM BICARBONATE 650 MG TAB PO SCH ×3 (05:33→21:25)
[2017-08-16] MEDS: GABAPENTIN 300 MG CAP PO SCH ×3 (05:33→21:25)
[2017-08-16] MEDS: ACCU-CHEK COMFORT CURVE STRIP VI SCH ×4 (06:10→22:04)
[2017-08-16] MEDS: InsuLIN REG 1unit/0.01ml Soln (100units/ml) SC SCH ×4 (06:10→22:04)
[2017-08-16 06:33] LABS: Basophils # (auto) 0 uL; Basophils % (auto) 0.4 % (0.0-2.0); Eosinophils # (auto) 0.2 uL; Eosinophils % (auto) 2.8 % (0.0-7.0); Hematocrit 27.6 % (41.0-53.0); Hemoglobin 9.2 g/dL (13.5-17.5); Lymphocytes # (auto) 2.1 uL; Lymphocytes % (auto) 34.4 % (10.0-50.0); Mean Corpuscular Hemoglobin 33.6 pg (28.0-32.0); Mean Corpuscular Hgb Conc. 33.3 g/dL (32.0-36.0); Mean Corpuscular Volume 100.9 fL (80.0-100.0); Monocytes # (auto) 0.4 uL; Monocytes % (auto) 7.3 % (0.0-12.0); Neutrophils # (auto) 3.4 uL; Neutrophils % (auto) 55.1 % (37.0-80.0); Platelet Count (auto) 242 10^3/uL (140-450); Red Blood Cells 2.73 10^6/uL (4.5-5.90); Red Cell Distribution Width 15.1 % (11.8-14.3); White Blood Cell 6.1 10^3/uL (4.4-10.8)
[2017-08-16 07:09] LABS: Albumin 2.4 g/dL (3.4-5.0); BUN/Creatinine Ratio 16.8; Bilirubin, Total 0.4 mg/dL (0.2-1.0); Calcium 7.9 mg/dL (8.5-10.1); Total Protein 6.5 g/dL (6.4-8.2)
[2017-08-16 08:30] VITALS: BP 136/70
[2017-08-16] MEDS: FUROSEMIDE 40 MG/4 ML VIAL IV SCH (10:34)
[2017-08-16] MEDS: MEROPENEM 1GM IVPB 100 ML IV SCH ×2 (10:34→22:40)
[2017-08-16] MEDS ORDERED: DOCUSATE SOD 100 MG CAP PO PRN (11:00)
[2017-08-16 12:15] VITALS: BP 132/76
[2017-08-16] MEDS: AMPICILLIN INJ 1 GM in SODIUM CHL 0.9% 50 ML IV SCH ×3 (13:28→23:37)
[2017-08-16 16:20] VITALS: BP 141/82
[2017-08-16] MEDS: TAMSULOSIN HYDROCHLORIDE 0.4 MG CAP PO SCH (17:52)
[2017-08-16 21:41] VITALS: BP 137/60
[2017-08-17 05:09] VITALS: BP 126/68
[2017-08-17] MEDS: AMPICILLIN INJ 1 GM in SODIUM CHL 0.9% 50 ML IV SCH ×2 (05:34→12:42)
[2017-08-17] MEDS: GABAPENTIN 300 MG CAP PO SCH ×2 (05:34→15:29)
[2017-08-17] MEDS: SODIUM BICARBONATE 650 MG TAB PO SCH ×2 (05:59→15:28)
[2017-08-17] MEDS: InsuLIN REG 1unit/0.01ml Soln (100units/ml) SC SCH ×2 (06:42→12:11)
[2017-08-17] MEDS: ACCU-CHEK COMFORT CURVE STRIP VI SCH ×2 (06:43→12:11)
[2017-08-17 06:49] LABS: Basophils # (auto) 0 uL; Basophils % (auto) 0.3 % (0.0-2.0); Eosinophils # (auto) 0.1 uL; Eosinophils % (auto) 2.3 % (0.0-7.0); Hemoglobin 9.2 g/dL (13.5-17.5); Lymphocytes # (auto) 1.9 uL; Lymphocytes % (auto) 31.4 % (10.0-50.0); Mean Corpuscular Hemoglobin 33.9 pg (28.0-32.0); Mean Corpuscular Hgb Conc. 33.9 g/dL (32.0-36.0); Monocytes # (auto) 0.4 uL; Monocytes % (auto) 6.9 % (0.0-12.0); Neutrophils # (auto) 3.6 uL; Neutrophils % (auto) 59.1 % (37.0-80.0); Nucleated Red Blood Cells % 0.1 %; Platelet Count (auto) 252 10^3/uL (140-450); Red Cell Distribution Width 14.6 % (11.8-14.3); White Blood Cell 6.1 10^3/uL (4.4-10.8)
[2017-08-17 08:13] LABS: Albumin 2.3 g/dL (3.4-5.0); BUN/Creatinine Ratio 18.4; Bilirubin, Total 0.3 mg/dL (0.2-1.0); Calcium 8.2 mg/dL (8.5-10.1); Potassium 4.1 mmol/L (3.5-5.1); Total Protein 6.7 g/dL (6.4-8.2)
[2017-08-17] MEDS: FUROSEMIDE 40 MG/4 ML VIAL IV SCH (09:07)
[2017-08-17 09:52] VITALS: BP 127/64
[2017-08-17] MEDS: MEROPENEM 1GM IVPB 100 ML IV SCH (10:46)
[2017-08-17 13:43] VITALS: BP 127/64
[2017-08-17] MEDS: HYDROcodone-ACET 5/325MG TAB PO PRN (15:33)
[2017-08-17 16:19] VITALS: BP 129/78
== END 2017-08-17 16:26 | disposition home or self-care (01) | DRG 710 ==
LOC: ER 12:21 → TELE 12:22 → DOU IN ICU 08-13 21:50 → TELE-CENTR 08-15 19:55
PROVIDERS: ADMIT Internal Medicine; ATTEND Internal Medicine
PROC: 0QBQ0ZZ Excision of Right Toe Phalanx, Open Approach (ICD-10-PCS; principal; 2017-08-11)
DX: A41.9 Sepsis, unspecified organism (principal); N17.1 Acute kidney failure with acute cortical necrosis; E43 Unspecified severe protein-calorie malnutrition; E11.21 Type 2 diabetes mellitus with diabetic nephropathy; D69.59 Other secondary thrombocytopenia; N18.4 Chronic kidney disease, stage 4 (severe); E11.22 Type 2 diabetes mellitus with diabetic chronic kidney disease; E11.42 Type 2 diabetes mellitus with diabetic polyneuropathy; E87.5 Hyperkalemia; L97.519 Non-pressure chronic ulcer of other part of right foot with unspecified severity; I12.9 Hypertensive chronic kidney disease with stage 1 through stage 4 chronic kidney disease, or unspecified chronic kidney disease; N18.9 Chronic kidney disease, unspecified; D64.9 Anemia, unspecified; E11.621 Type 2 diabetes mellitus with foot ulcer; E11.65 Type 2 diabetes mellitus with hyperglycemia; E11.69 Type 2 diabetes mellitus with other specified complication; E66.01 Morbid (severe) obesity due to excess calories; E78.5 Hyperlipidemia, unspecified; E11.51 Type 2 diabetes mellitus with diabetic peripheral angiopathy without gangrene; L08.9 Local infection of the skin and subcutaneous tissue, unspecified; M86.8X7 Other osteomyelitis, ankle and foot; N25.89 Other disorders resulting from impaired renal tubular function; N28.89 Other specified disorders of kidney and ureter; R33.9 Retention of urine, unspecified; Z82.49 Family history of ischemic heart disease and other diseases of the circulatory system; Z83.3 Family history of diabetes mellitus; Z91.19 Patient's noncompliance with other medical treatment and regimen; Z68.38 Body mass index [BMI] 38.0-38.9, adult
CPT/HCPCS: 36415; 71010; 73620; 76775; 78315; 80048; 80053; 81001; 82570; 82962; 83735; 84100; 84132; 84156; 84484; 85025; 85610; 85652; 85730; 87070; 87075; 87077; 87081; 87186; 87205; 93005; 93926; 94640; 96365; 96366; 96375; 99291; J0610; J0690; J1815; J2185; J2405; J2543; J2704; J3490

== ENCOUNTER 2017-08-17 19:27 | Emergency (ER) | payer MEDICAID ==
[~2017-08-17] VITALS: Ht 193 cm; Wt 142.9 kg
[2017-08-17] MEDS ORDERED: HYDROcodone-ACET 7.5/325MG TAB PO ONE (20:00)
[2017-08-17 21:55] VITALS: BP 129/74
[2017-08-17] MEDS ORDERED: HYDROmorphone HCL 2 MG/ML VL IV ONE (22:15)
[2017-08-17] MEDS ORDERED: ONDANSETRON HCL 4 MG/2 ML VIAL IV ONE (22:15)
== END 2017-08-17 22:26 | disposition home or self-care (01) ==
LOC: EDBD 19:27 → ER 19:35
DX: S22.31XA Fracture of one rib, right side, initial encounter for closed fracture (principal); E11.9 Type 2 diabetes mellitus without complications; E78.5 Hyperlipidemia, unspecified; I10 Essential (primary) hypertension; W01.0XXA Fall on same level from slipping, tripping and stumbling without subsequent striking against object, initial encounter; Y99.8 Other external cause status; Y93.89 Activity, other specified; Y92.89 Other specified places as the place of occurrence of the external cause; Z79.899 Other long term (current) drug therapy
CPT/HCPCS: 71250; 96374; 96375; 99284; J1170; J2405

== ENCOUNTER 2018-02-28 23:01 | Emergency (ER) | payer MEDICAID, OTHER ==
[~2018-02-28] VITALS: Ht 193 cm; Wt 138.3 kg
[2018-03-01] MEDS ORDERED: MORPHINE SULFATE 4 MG/ML SYR/VIAL IV ONE (02:15)
[2018-03-01] MEDS ORDERED: ONDANSETRON HCL 4 MG/2 ML VIAL IV ONE (02:15)
[2018-03-01] MEDS ORDERED: HYDROcodone-ACET 10/325MG TAB PO ONE (04:45)
[2018-03-01 05:30] VITALS: BP 166/78
== END 2018-03-01 06:25 | disposition home or self-care (01) ==
LOC: EDBD 23:01 → ER 23:04
DX: N28.89 Other specified disorders of kidney and ureter (principal); I10 Essential (primary) hypertension; E78.5 Hyperlipidemia, unspecified; E11.9 Type 2 diabetes mellitus without complications; Z79.4 Long term (current) use of insulin
CPT/HCPCS: 74176; 76705; 93005

== ENCOUNTER 2019-10-30 11:11 | Emergency (ER) | payer MEDICAID ==
[~2019-10-30] VITALS: Ht 193 cm; Wt 122.5 kg
[2019-10-30] MEDS ORDERED: cefTRIAXone W LIDOCAINE 1 GM IM IM ONE (12:15)
[2019-10-30 13:31] LABS: Basophils # (auto) 0 uL; Basophils % (auto) 0.4 % (0.0-2.0); Eosinophils # (auto) 0.1 uL; Eosinophils % (auto) 1.3 % (0.0-7.0); Hematocrit 32.4 % (41.0-53.0); Lymphocytes # (auto) 1.4 uL; Lymphocytes % (auto) 17.6 % (10.0-50.0); Mean Corpuscular Hgb Conc. 34.1 g/dL (32.0-36.0); Mean Corpuscular Volume 99.8 fL (80.0-100.0); Monocytes # (auto) 0.7 uL; Monocytes % (auto) 8.6 % (0.0-12.0); Neutrophils # (auto) 5.7 uL; Neutrophils % (auto) 72.1 % (37.0-80.0); Platelet Count (auto) 242 10^3/uL (140-450); Red Blood Cells 3.25 10^6/uL (4.5-5.90); Red Cell Distribution Width 13.8 % (11.8-14.3); White Blood Cell 7.9 10^3/uL (4.4-10.8)
[2019-10-30 13:51] LABS: Albumin 2.9 g/dL (3.4-5.0); Calcium 8.9 mg/dL (8.5-10.1); Potassium 4.3 mmol/L (3.5-5.1)
[2019-10-30 13:54] LABS: BUN/Creatinine Ratio 15.7; Bilirubin, Total 0.4 mg/dL (0.2-1.0); Total Protein 7.6 g/dL (6.4-8.2); Uric Acid 9.7 mg/dL (3.5-7.2)
[2019-10-30 14:37] VITALS: BP 146/51
== END 2019-10-30 14:58 | disposition home or self-care (01) ==
LOC: ER 11:11
DX: M10.9 Gout, unspecified (principal); L03.114 Cellulitis of left upper limb; E46 Unspecified protein-calorie malnutrition; Z68.32 Body mass index [BMI] 32.0-32.9, adult; E11.65 Type 2 diabetes mellitus with hyperglycemia; E78.00 Pure hypercholesterolemia, unspecified; I12.9 Hypertensive chronic kidney disease with stage 1 through stage 4 chronic kidney disease, or unspecified chronic kidney disease; E11.22 Type 2 diabetes mellitus with diabetic chronic kidney disease; N18.9 Chronic kidney disease, unspecified; Z79.82 Long term (current) use of aspirin; Z79.4 Long term (current) use of insulin; Z79.899 Other long term (current) drug therapy; Z79.84 Long term (current) use of oral hypoglycemic drugs
CPT/HCPCS: 36415; 73110; 73130; 80053; 84550; 85025; 96372; 99284; J0696